=== PATIENT | male | born 1965 | race Caucasian/White ===

== ENCOUNTER 2017-01-10 19:27 | Emergency (ER) | payer OTHER ==
[~2017-01-10] VITALS: Ht 182.9 cm; Wt 123.8 kg
[2017-01-10 19:29] VITALS: BP 172/102; PULSE 77; RESP 16; TEMP 98.3; O2SAT 97
[2017-01-10] MEDS ORDERED: AMLO10TA2 PO (19:45)
[2017-01-10] MEDS ORDERED: BACT800T5 PO (19:52)
--- NOTE | 2017-01-10 19:53 | PD ---
HPI Chief Complaint: Skin Problem Time Seen by Provider: 19:48 Travel History International Travel<30 days: No Contact w/Intl Traveler<30days: No Traveled to known affect area: No History of Present Illness HPI 51-year-old male presents emergency department for evaluation of possible spider bite to right posterior back 5 days ago. 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 Since then he's developed increasing pain, redness, swelling at the site of the bite. He denies fever or chills. He reports the pain is constant, nonradiating, no aggravating or alleviating factors. Severity 5 out of 10 PFSH Past Medical History Cardiovascular Problems: Yes Social History Tobacco Use: No Allergies-Medications (Allergen,Severity, Reaction): Coded Allergies: No Known Allergies (Unverified , 01/10/17) Reported Meds & Prescriptions Reported Meds & Active Scripts Active Reported Amlodipine (Amlodipine Besylate) 10 Mg Tab 10 Mg PO DAILY Review of Systems Except as stated in HPI: all other systems reviewed are Neg General / Constitutional: No: Fever Eyes: No: Visual changes HENT: No: Headaches Cardiovascular: No: Chest Pain or Discomfort Respiratory: No: Shortness of Breath Gastrointestinal: No: Abdominal Pain Genitourinary: No: Dysuria Physical Exam Narrative GENERAL: Well-nourished, well-developed patient. SKIN: Focused skin assessment warm/dry. 3 x 2 cm area of erythema and induration. There is no fluctuance. HEAD: Normocephalic. EYES: No scleral icterus. No injection or drainage. NECK: Supple, trachea midline. No JVD or lymphadenopathy. CARDIOVASCULAR: Regular rate and rhythm without murmurs, gallops, or rubs. RESPIRATORY: Breath sounds equal bilaterally. No accessory muscle use. GASTROINTESTINAL: Abdomen soft, non-tender, nondistended. MUSCULOSKELETAL: No cyanosis, or edema. BACK: Nontender without obvious deformity. No CVA tenderness. Data Data Last Documented VS Vital Signs Date Time Temp Pulse Resp B/P Pulse Ox O2 Delivery O2 Flow Rate FiO2 01/10/17 19:29 98.3 77 16 172/102 97 MDM Medical Decision Making Medical Screen Exam Complete: Yes Emergency Medical Condition: Yes Differential Diagnosis Insect bite, abscess, wound infection Narrative Course 51-year-old male with chief complaint of possible insect bite to right posterior back 5 days. On physical exam patient has what appears to be early abscess. There is no fluctuance. Patient put on Bactrim and instructed to follow-up with primary care doctor. Diagnosis Primary Impression: Abscess Referrals: Primary Care Physician Scripts Sulfamethoxazole-Trimethoprim (Bactrim DS)800-160 Mg Tab1 Tab PO BID #20 TAB Prov:Susan David 01/10/17 Disposition: 01 DISCHARGE HOME Condition: Stable Susan David Jan 10, 2017 19:53
== END 2017-01-10 20:44 | disposition home or self-care (01) ==
LOC: PHEFT 19:27
DX: L02.212 Cutaneous abscess of back [any part, except buttock and flank] (principal); Z86.79 Personal history of other diseases of the circulatory system
CPT/HCPCS: 99283